=== PATIENT | female | born 1945 | race Caucasian/White ===

== ENCOUNTER 2018-03-05 11:02 | Day surgery (SDC) | payer OTHER, MEDICARE ==
[2018-03-04 09:14] VITALS: BMI 24.7
[2018-03-05] MEDS ORDERED: PROPOFOL 20 ML ONE (12:53)
[2018-03-05 13:58] VITALS: TEMP 97.6
[2018-03-05 14:34] VITALS: BP 152/76; PULSE 62
--- NOTE | 2018-03-10 14:40 | PATH ---
Surgical Pathology Report Patient Name: MAGO DURON [facility]. Rec. #: [id number] /Age/Gender: 1945 (Age: 72) / F Account: [id number] Location: [facility] Taken: 03/05/2018 Received: 03/05/2018 Reported: 03/10/2018 Physicians: Kristal Santos M.D. Specimen(s) Received A: BX DUODENUM 2ND PORTION B: BX ANTRUM C: BX GE JUNCTION Clinical History Dyspepsia Postoperative diagnosis: Hiatal hernia, gastritis Final Diagnosis A. SECOND PORTION OF DUODENUM, BIOPSY: DUODENAL MUCOSA WITH NO PATHOLOGIC FINDINGS. B. ANTRUM, BIOPSY: MILD CHRONIC GASTRITIS. IMMUNOSTAIN IS NEGATIVE FOR H. PYLORI ORGANISMS. C. GE JUNCTION, BIOPSY: ESOPHAGOGASTRIC JUNCTIONAL (SQUAMOCOLUMNAR) MUCOSA SHOWING MILD CHRONIC INFLAMMATION. NEGATIVE FOR INTESTINAL METAPLASIA. Electronically Signed Nena Cain M.D. Gross Description A. Received in formalin, labeled "biopsy second portion of duodenum" are 2 butler, irregular portions of soft tissue averaging 0.3 cm. in greatest dimension. The specimens are submitted in toto in one cassette. B. Received in formalin, labeled "biopsy antrum" is a butler, irregular portion of soft tissue measuring 0.4 cm. in greatest dimension. The specimen is submitted in toto in one cassette. C. Received in formalin, labeled "biopsy GE junction" are 2 butler, irregular portions of soft tissue measuring 0.3 and 0.4 cm. in greatest dimension. The specimens are submitted in toto in one cassette. 03/06/2018 saudi03/06/2018
== END 2018-03-05 14:20 | disposition home or self-care (01) ==
LOC: FASU-ENDO 11:02
PROVIDERS: ATTEND Internal Medicine Gastroenterology
PROC: 0DB78ZX Excision of Stomach, Pylorus, Via Natural or Artificial Opening Endoscopic, Diagnostic (ICD-10-PCS; 2018-03-05)
PROC: 0DB48ZX Excision of Esophagogastric Junction, Via Natural or Artificial Opening Endoscopic, Diagnostic (ICD-10-PCS; 2018-03-05)
PROC: 0DB98ZX Excision of Duodenum, Via Natural or Artificial Opening Endoscopic, Diagnostic (ICD-10-PCS; principal; 2018-03-05 12:00)
DX: K29.70 Gastritis, unspecified, without bleeding (principal); K44.9 Diaphragmatic hernia without obstruction or gangrene
CPT/HCPCS: 88305-TC; 88342-TC

== ENCOUNTER 2018-04-02 10:31 | Day surgery (SDC) | payer OTHER, MEDICARE ==
[2018-03-21 13:33] VITALS: BMI 24.7
[2018-04-02] MEDS ORDERED: LIDOCAINE HCL/PF 2% SDV 5ML VIAL ONE ×2 (10:49→11:49)
[2018-04-02 11:49] VITALS: TEMP 97.4
[2018-04-02] MEDS ORDERED: PROPOFOL 20 ML ONE (11:49)
[2018-04-02 13:05] VITALS: BP 111/68; PULSE 68
--- NOTE | 2018-04-04 16:14 | PATH ---
Surgical Pathology Report Patient Name: MAGO DURON [facility]. Rec. #: [id number] /Age/Gender: 1945 (Age: 72) / F Account: [id number] Location: [facility] Taken: 04/02/2018 Received: 04/02/2018 Reported: 04/04/2018 Physicians: Kristal Santos M.D. Specimen(s) Received A: RIGHT COLON B: TRANSVERSE COLON C: DESCENDING COLON D: RECTUM Clinical History Diarrhea Postoperative diagnosis: Hemorrhoids, small diverticuli Final Diagnosis A. RIGHT COLON, BIOPSY: COLONIC MUCOSA SHOWING MILD SURFACE HYPERPLASTIC CHANGE AND SMALL BENIGN/REACTIVE LYMPHOID AGGREGATES. B. TRANSVERSE COLON, BIOPSY: COLONIC MUCOSA SHOWING MILD SURFACE HYPERPLASTIC CHANGE AND BENIGN/REACTIVE LYMPHOID AGGREGATE. C. DESCENDING COLON, BIOPSY: COLONIC MUCOSA WITH NO PATHOLOGIC FINDINGS. D. RECTUM, BIOPSY: COLONIC/RECTAL MUCOSA SHOWING MILD SURFACE HYPERPLASTIC CHANGE AND SMALL BENIGN/REACTIVE LYMPHOID AGGREGATE. Electronically Signed Nena Cain M.D. Gross Description A. Received in formalin, labeled "biopsy right colon" are 2 butler, irregular portions of soft tissue averaging 0.3 cm. in greatest dimension. The specimens are submitted in toto in one cassette. B. Received in formalin, labeled "biopsy transverse colon" are 2 butler, irregular portions of soft tissue averaging 0.2 cm. in greatest dimension. The specimens are submitted in toto in one cassette. C. Received in formalin, labeled "biopsy descending colon" is a butler, irregular portion of soft tissue measuring 0.3 cm. in greatest dimension. The specimen is submitted in toto in one cassette. D. Received in formalin, labeled "biopsy rectum" are 2 butler, irregular portions of soft tissue measuring 0.3 and 0.8 cm. in greatest dimension. The specimens are submitted in toto in one cassette. 04/03/2018 saudi04/03/2018
== END 2018-04-02 13:15 | disposition home or self-care (01) ==
LOC: FASU-ENDO 10:31
PROVIDERS: ATTEND Internal Medicine Gastroenterology
PROC: 0DBL8ZX Excision of Transverse Colon, Via Natural or Artificial Opening Endoscopic, Diagnostic (ICD-10-PCS; 2018-04-02)
PROC: 0DBP8ZX Excision of Rectum, Via Natural or Artificial Opening Endoscopic, Diagnostic (ICD-10-PCS; 2018-04-02)
PROC: 0DBM8ZX Excision of Descending Colon, Via Natural or Artificial Opening Endoscopic, Diagnostic (ICD-10-PCS; 2018-04-02)
PROC: 0DBK8ZX Excision of Ascending Colon, Via Natural or Artificial Opening Endoscopic, Diagnostic (ICD-10-PCS; principal; 2018-04-02 11:00)
DX: K57.30 Diverticulosis of large intestine without perforation or abscess without bleeding (principal); K63.89 Other specified diseases of intestine; K64.2 Third degree hemorrhoids; R19.7 Diarrhea, unspecified; R03.0 Elevated blood-pressure reading, without diagnosis of hypertension; E78.00 Pure hypercholesterolemia, unspecified; M81.0 Age-related osteoporosis without current pathological fracture; Z98.61 Coronary angioplasty status; D57.3 Sickle-cell trait; E55.9 Vitamin D deficiency, unspecified
CPT/HCPCS: 88305-TC